=== PATIENT | male | born 1970 | race Caucasian/White ===

== ENCOUNTER 2017-11-06 14:45 | Emergency (ER) | payer OTHER ==
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
[2017-11-06 14:52] VITALS: BP 152/99
[2017-11-06] MEDS ORDERED: HYDROcodone/ACETAMIN 5-325 MG* 1 TAB PO ONE (15:12)
== END 2017-11-06 15:22 | disposition home health service (06) ==
LOC: UCEAST 14:45
DX: T20.37XA Burn of third degree of neck, initial encounter (principal); T22.262A Burn of second degree of left scapular region, initial encounter; T22.261A Burn of second degree of right scapular region, initial encounter; T21.11XA Burn of first degree of chest wall, initial encounter; T21.12XA Burn of first degree of abdominal wall, initial encounter; X12.XXXA Contact with other hot fluids, initial encounter; Y93.89 Activity, other specified; Y92.9 Unspecified place or not applicable; Y99.0 Civilian activity done for income or pay; Z88.0 Allergy status to penicillin; Z87.891 Personal history of nicotine dependence
CPT/HCPCS: 99212; G0463